=== PATIENT | male | born 1955 | race Caucasian/White ===

== ENCOUNTER 2020-04-01 18:48 | Inpatient (IN) | payer OTHER ==
[2020-04-01] MEDS ORDERED: dilTIAZem HCL 50 MG/10 ML - 10 ML VIAL IVPUSH ONE ×3 (20:14→20:45)
[2020-04-01] MEDS ORDERED: dilTIAZem HCL 125 MG/25 ML - 25 ML VIAL ONE ×3 (20:17→20:47)
[2020-04-01 20:26] LABS: HEMATOCRIT 34.7 % (35.4-49); HEMOGLOBIN 10.9 GM/dL (11.7-16.9); MCHC 31.3 g/dl (32.0-35.9); MEAN CELL VOLUME 79.8 fl (80-96); MEAN PLT VOLUME 9.7 fl (7.5-11.1); PLATELET COUNT 282 K/MM3 (134-434); RBC 4.35 M/mm3 (4.00-5.60); RDW 17.4 % (11.9-15.9); WHITE BLOOD COUNT 10.6 K/mm3 (4.0-10.0)
[2020-04-01 20:40] LABS: INR 1.63 (0.83-1.09); PROTHROMBIN TIME (PATIENT) 19.8 SEC (9.7-13.0)
[2020-04-01 20:43] LABS: ACTIVATED PTT 30.1 SECONDS (25.2-36.5)
[2020-04-01] MEDS ORDERED: DILTIAZEM INJECTION 125 MG in SODIUM CHLORIDE 100 ML IVPB SCH (20:45)
[2020-04-01] MEDS ORDERED: dilTIAZem HCL 50 MG/10 ML - 10 ML VIAL ONE (20:47)
[2020-04-01 20:59] LABS: CHLORIDE 100 mmol/L (98-107); POTASSIUM 5.1 mmol/L (3.5-5.1); SODIUM 134 mmol/L (136-145)
[2020-04-01 21:00] LABS: ALBUMIN 3.7 g/dl (3.4-5.0); CALCIUM 8.5 mg/dL (8.5-10.1); MAGNESIUM 2.3 mg/dL (1.8-2.4)
[2020-04-01 21:01] LABS: ANION GAP 7 MMOL/L (8-16); CO2 26 mmol/L (21-32); GLUCOSE,RANDOM 98 mg/dL (74-106)
[2020-04-01] MEDS ORDERED: HEPARIN NA (PORCINE) 5,000 UNITS/ML 1ML VIAL IVPUSH ONE (21:01)
[2020-04-01] MEDS ORDERED: HEPARIN NA (PORCINE) 5,000 UNITS/ML 1ML VIAL IVPUSH PRN (21:02)
[2020-04-01 21:03] LABS: CREATININE 1.4 mg/dL (0.55-1.3); SGOT/AST 259 U/L (15-37); SGPT/ALT 513 U/L (13-61)
[2020-04-01 21:05] LABS: TOT PROT 6.5 g/dl (6.4-8.2)
[2020-04-01 21:09] LABS: N-TERMINAL BNP 4029.2 pg/ml (5-125)
[2020-04-01] MEDS ORDERED: SODIUM CHLORIDE 500 ML IV STA (21:11)
[2020-04-01 21:12] LABS: BILIRUBIN,TOTAL 2.6 mg/dL (0.2-1)
[2020-04-01 21:14] LABS: ALK PHOS 170 U/L (45-117)
[2020-04-01] MEDS ORDERED: HEPARIN - 25,000 UNIT in SODIUM CHLORIDE 495 ML IV SCH (21:15)
[2020-04-01] MEDS ORDERED: HEPARIN NA (PORCINE) 5,000 UNITS/ML 1ML VIAL ONE (21:17)
[2020-04-01] MEDS ORDERED: HEPARIN INFUSION - 25,000 UNITS/500 ML INFUS.BAG IVPB ONE (21:17)
[2020-04-01] MEDS ORDERED: FUROSEMIDE 40 MG/4 ML INJECTABLE VIAL ONE (21:23)
[2020-04-01] MEDS ORDERED: FUROSEMIDE 40 MG/4 ML INJECTABLE VIAL IVPUSH ONE (21:24)
[2020-04-01 21:36] LABS: BLOOD UREA NITROGEN 27.9 mg/dL (7-18)
[2020-04-01] MEDS ORDERED: METOPROLOL TARTRATE 5 MG/5 ML VIAL ONE (22:04)
[2020-04-01] MEDS ORDERED: METOPROLOL TARTRATE 5 MG/5 ML VIAL IVPUSH ONE (22:31)
[2020-04-01 23:08] LABS: URINE APPEARANCE CLEAR; URINE BILIRUBIN NEGATIVE (NEGATIVE); URINE COLOR YELLOW; URINE GLUCOSE (UA) NEGATIVE (NEGATIVE); URINE KETONE NEGATIVE (NEGATIVE); URINE LEUK ESTERASE NEGATIVE (NEGATIVE); URINE NITRITE NEGATIVE (NEGATIVE); URINE PROTEIN NEGATIVE (NEGATIVE)
[2020-04-02] MEDS ORDERED: DIGOXIN IVPUSH ONE (00:07)
[2020-04-02] MEDS ORDERED: ENOXAPARIN NA (PORCINE) 100 MG/1 ML DISP.SYRIN SQ ONE ×2 (00:17→00:31)
[2020-04-02] MEDS ORDERED: DIGOXIN 0.5 MG/2 ML AMPUL IVPUSH ONE ×4 (00:25→06:12)
[2020-04-02] MEDS ORDERED: DIGOXIN 0.5 MG/2 ML AMPUL ONE (00:58)
[2020-04-02] MEDS: OSELTAMIVIR PHOSPHATE 75 MG CAPSULE PO SCH ×3 (01:44→22:11)
[2020-04-02 05:05] VITALS: BMI 32.1
[2020-04-02 06:41] LABS: BASO % 0.7 % (0-2.0); EOS % 1.1 % (0-4.5); HEMATOCRIT 33.8 % (35.4-49); HEMOGLOBIN 10.8 GM/dL (11.7-16.9); LYMPH % 24.5 % (8-40); MCH 25.5 pg (25.7-33.7); MCHC 31.8 g/dl (32.0-35.9); MEAN CELL VOLUME 80.1 fl (80-96); MEAN PLT VOLUME 9.6 fl (7.5-11.1); MONO % 19.1 % (3.8-10.2); NEUT % 54.6 % (42.8-82.8); PLATELET COUNT 236 K/MM3 (134-434); RBC 4.23 M/mm3 (4.00-5.60); RDW 17.5 % (11.9-15.9); WHITE BLOOD COUNT 10.5 K/mm3 (4.0-10.0)
[2020-04-02 06:54] LABS: INR 1.62 (0.83-1.09); PROTHROMBIN TIME (PATIENT) 19.7 SEC (9.7-13.0)
[2020-04-02 07:13] LABS: ALBUMIN 3.4 g/dl (3.4-5.0); ALK PHOS 142 U/L (45-117); ANION GAP 11 MMOL/L (8-16); BILIRUBIN,TOTAL 2.1 mg/dL (0.2-1); BLOOD UREA NITROGEN 25.6 mg/dL (7-18); CALCIUM 8.2 mg/dL (8.5-10.1); CHLORIDE 103 mmol/L (98-107); CO2 23 mmol/L (21-32); CREATININE 1.2 mg/dL (0.55-1.3); GLUCOSE,RANDOM 85 mg/dL (74-106); MAGNESIUM 2.1 mg/dL (1.8-2.4); PHOSPHOROUS 4.7 mg/dL (2.5-4.9); POTASSIUM 4.6 mmol/L (3.5-5.1); SGOT/AST 213 U/L (15-37); SGPT/ALT 438 U/L (13-61); SODIUM 137 mmol/L (136-145); TOT PROT 5.8 g/dl (6.4-8.2)
[2020-04-02] MEDS ORDERED: dilTIAZem HCL 25 MG/5 ML - 5 ML VIAL ONE (07:25)
[2020-04-02] MEDS: INSULIN SLIDING SCALE (NOVOLOG) 1 VIAL SQ SCH ×4 (07:58→22:25)
[2020-04-02] MEDS ORDERED: METOPROLOL TARTRATE 5 MG/5 ML VIAL IVPUSH PRN (08:45)
[2020-04-02] MEDS ORDERED: METOPROLOL TARTRATE 50 MG TABLET (FP) PO SCH (10:15)
[2020-04-02] MEDS: SOTALOL HCL 80 MG TABLET (FP) PO SCH ×2 (10:57→22:10)
[2020-04-02] MEDS: MUPIROCIN 2% TOPICAL OINTMENT FOR DECOLONIZATION NS SCH ×2 (11:04→22:10)
[2020-04-02] MEDS ORDERED: DILTIAZEM INJECTION 125 MG in SODIUM CHLORIDE 100 ML IVPB SCH (12:57)
[2020-04-02] MEDS ORDERED: dilTIAZem HCL 30 MG TABLET PO SCH (14:00)
[2020-04-02] MEDS: DILTIAZEM INJECTION 125 MG in SODIUM CHLORIDE 100 ML IVPB SCH (16:11)
[2020-04-02] MEDS ORDERED: CHLORHEXIDINE GLUCONATE 4% CLEANSER FOR DECOLONIZATION TP SCH (22:00)
[2020-04-03] MEDS: INSULIN SLIDING SCALE (NOVOLOG) 1 VIAL SQ SCH ×4 (06:58→23:35)
[2020-04-03 06:59] LABS: BASO % 0.6 % (0-2.0); EOS % 2.6 % (0-4.5); HEMOGLOBIN 11.5 GM/dL (11.7-16.9); LYMPH % 15.5 % (8-40); MCH 24.7 pg (25.7-33.7); MCHC 31.1 g/dl (32.0-35.9); MEAN CELL VOLUME 79.6 fl (80-96); MEAN PLT VOLUME 9.4 fl (7.5-11.1); MONO % 12.1 % (3.8-10.2); NEUT % 69.2 % (42.8-82.8); PLATELET COUNT 213 K/MM3 (134-434); RBC 4.65 M/mm3 (4.00-5.60); RDW 17.8 % (11.9-15.9); WHITE BLOOD COUNT 11.7 K/mm3 (4.0-10.0)
[2020-04-03 08:01] LABS: ALBUMIN 3.1 g/dl (3.4-5.0); BILIRUBIN,TOTAL 1.6 mg/dL (0.2-1); BLOOD UREA NITROGEN 21.1 mg/dL (7-18); CALCIUM 7.9 mg/dL (8.5-10.1); CREATININE 1.1 mg/dL (0.55-1.3); MAGNESIUM 2.4 mg/dL (1.8-2.4); PHOSPHOROUS 3.9 mg/dL (2.5-4.9); POTASSIUM 4.1 mmol/L (3.5-5.1); TOT PROT 5.7 g/dl (6.4-8.2)
[2020-04-03] MEDS: OSELTAMIVIR PHOSPHATE 75 MG CAPSULE PO SCH ×2 (09:17→23:35)
[2020-04-03] MEDS: SOTALOL HCL 80 MG TABLET (FP) PO SCH ×2 (09:17→23:35)
[2020-04-03] MEDS: MUPIROCIN 2% TOPICAL OINTMENT FOR DECOLONIZATION NS SCH (09:18)
[2020-04-03] MEDS: BENZOCAINE/MENTH/CETYLPYRD CL 1 EACH LOZENGE MM SCH ×3 (09:58→23:35)
[2020-04-03] MEDS ORDERED: METOPROLOL TARTRATE 50 MG TABLET (FP) PO SCH (10:00)
[2020-04-03] MEDS: FUROSEMIDE 40 MG/4 ML INJECTABLE VIAL IVPUSH SCH (11:46)
[2020-04-03] MEDS: METOPROLOL TARTRATE 5 MG/5 ML VIAL IVPUSH SCH ×4 (11:46→22:21)
[2020-04-03] MEDS: DILTIAZEM INJECTION 125 MG in SODIUM CHLORIDE 100 ML IVPB SCH ×2 (13:30→20:30)
[2020-04-03] MEDS ORDERED: CHLORHEXIDINE GLUCONATE 4% CLEANSER FOR DECOLONIZATION TP SCH (22:00)
[2020-04-03] MEDS ORDERED: MUPIROCIN 2% TOPICAL OINTMENT FOR DECOLONIZATION NS SCH (22:00)
[2020-04-04] MEDS: METOPROLOL TARTRATE 5 MG/5 ML VIAL IVPUSH SCH ×6 (02:25→22:11)
[2020-04-04] MEDS: BENZOCAINE/MENTH/CETYLPYRD CL 1 EACH LOZENGE MM SCH ×3 (06:54→21:21)
[2020-04-04] MEDS: INSULIN SLIDING SCALE (NOVOLOG) 1 VIAL SQ SCH ×4 (06:54→21:21)
[2020-04-04 08:59] LABS: POTASSIUM 3.9 mmol/L (3.5-5.1)
[2020-04-04 09:11] LABS: CALCIUM 8.2 mg/dL (8.5-10.1)
[2020-04-04 09:12] LABS: ALBUMIN 3.2 g/dl (3.4-5.0); BLOOD UREA NITROGEN 17.8 mg/dL (7-18); MAGNESIUM 2.3 mg/dL (1.8-2.4)
[2020-04-04 09:15] LABS: CREATININE 0.9 mg/dL (0.55-1.3)
[2020-04-04 09:16] LABS: BILIRUBIN,TOTAL 1.5 mg/dL (0.2-1)
[2020-04-04 10:05] LABS: BASO % 0.6 % (0-2.0); EOS % 3.2 % (0-4.5); HEMATOCRIT 35.5 % (35.4-49); HEMOGLOBIN 11.2 GM/dL (11.7-16.9); LYMPH % 16.4 % (8-40); MCH 24.9 pg (25.7-33.7); MCHC 31.4 g/dl (32.0-35.9); MEAN CELL VOLUME 79.1 fl (80-96); MEAN PLT VOLUME 9.2 fl (7.5-11.1); MONO % 14.6 % (3.8-10.2); NEUT % 65.2 % (42.8-82.8); PLATELET COUNT 230 K/MM3 (134-434); RBC 4.49 M/mm3 (4.00-5.60); RDW 17.8 % (11.9-15.9); WHITE BLOOD COUNT 8.9 K/mm3 (4.0-10.0)
[2020-04-04] MEDS: FUROSEMIDE 40 MG/4 ML INJECTABLE VIAL IVPUSH SCH (10:30)
[2020-04-04] MEDS: OSELTAMIVIR PHOSPHATE 75 MG CAPSULE PO SCH ×2 (10:30→21:18)
[2020-04-04] MEDS: SOTALOL HCL 80 MG TABLET (FP) PO SCH ×3 (10:31→21:18)
[2020-04-04] MEDS: DILTIAZEM INJECTION 125 MG in SODIUM CHLORIDE 100 ML IVPB SCH ×2 (14:40→22:56)
[2020-04-05] MEDS: METOPROLOL TARTRATE 5 MG/5 ML VIAL IVPUSH SCH ×5 (02:12→17:41)
[2020-04-05] MEDS: BENZOCAINE/MENTH/CETYLPYRD CL 1 EACH LOZENGE MM SCH ×3 (05:33→22:44)
[2020-04-05] MEDS: SOTALOL HCL 80 MG TABLET (FP) PO SCH ×3 (05:54→22:43)
[2020-04-05] MEDS: INSULIN SLIDING SCALE (NOVOLOG) 1 VIAL SQ SCH ×4 (06:05→22:53)
[2020-04-05] MEDS: FUROSEMIDE 40 MG/4 ML INJECTABLE VIAL IVPUSH SCH (09:33)
[2020-04-05] MEDS: OSELTAMIVIR PHOSPHATE 75 MG CAPSULE PO SCH ×2 (09:33→22:44)
[2020-04-05 10:26] LABS: HEMATOCRIT 34.1 % (35.4-49); HEMOGLOBIN 10.9 GM/dL (11.7-16.9); LYMPH % 20.3 % (8-40); MCH 25.2 pg (25.7-33.7); MCHC 31.9 g/dl (32.0-35.9); MEAN PLT VOLUME 8.9 fl (7.5-11.1); MONO % 13.8 % (3.8-10.2); NEUT % 59.9 % (42.8-82.8); PLATELET COUNT 250 K/MM3 (134-434); RBC 4.32 M/mm3 (4.00-5.60); RDW 17.6 % (11.9-15.9); WHITE BLOOD COUNT 7.4 K/mm3 (4.0-10.0)
[2020-04-05 10:59] LABS: CALCIUM 8.4 mg/dL (8.5-10.1)
[2020-04-05 11:00] LABS: ALBUMIN 3.1 g/dl (3.4-5.0); BLOOD UREA NITROGEN 16.2 mg/dL (7-18); MAGNESIUM 2.4 mg/dL (1.8-2.4)
[2020-04-05 11:03] LABS: CREATININE 0.9 mg/dL (0.55-1.3)
[2020-04-05 11:05] LABS: BILIRUBIN,TOTAL 1.3 mg/dL (0.2-1); TOT PROT 5.7 g/dl (6.4-8.2)
[2020-04-05] MEDS: DILTIAZEM INJECTION 125 MG in SODIUM CHLORIDE 100 ML IVPB SCH (14:01)
[2020-04-05] MEDS ORDERED: dilTIAZem HCL 30 MG TABLET PO SCH (16:00)
[2020-04-05] MEDS: dilTIAZem HCL 30 MG TABLET PO SCH (22:44)
[2020-04-06] MEDS: BENZOCAINE/MENTH/CETYLPYRD CL 1 EACH LOZENGE MM SCH ×3 (05:11→21:01)
[2020-04-06] MEDS: dilTIAZem HCL 30 MG TABLET PO SCH ×3 (05:11→21:00)
[2020-04-06] MEDS: SOTALOL HCL 80 MG TABLET (FP) PO SCH ×3 (05:11→21:00)
[2020-04-06] MEDS: INSULIN SLIDING SCALE (NOVOLOG) 1 VIAL SQ SCH ×2 (06:51→19:03)
[2020-04-06 09:51] LABS: EOS % 7.5 % (0-4.5); HEMATOCRIT 33.1 % (35.4-49); HEMOGLOBIN 10.5 GM/dL (11.7-16.9); LYMPH % 21.8 % (8-40); MCH 25.1 pg (25.7-33.7); MCHC 31.8 g/dl (32.0-35.9); MEAN CELL VOLUME 78.9 fl (80-96); MONO % 13.4 % (3.8-10.2); NEUT % 55.3 % (42.8-82.8); PLATELET COUNT 223 K/MM3 (134-434); RDW 17.6 % (11.9-15.9); WHITE BLOOD COUNT 6.7 K/mm3 (4.0-10.0)
[2020-04-06] MEDS: FUROSEMIDE 20 MG TABLET (FP) PO SCH (10:04)
[2020-04-06] MEDS: OSELTAMIVIR PHOSPHATE 75 MG CAPSULE PO SCH (10:04)
[2020-04-06 10:23] LABS: POTASSIUM 4.1 mmol/L (3.5-5.1)
[2020-04-06 11:25] LABS: CALCIUM 8.5 mg/dL (8.5-10.1); MAGNESIUM 2.4 mg/dL (1.8-2.4)
[2020-04-06 11:26] LABS: ALBUMIN 3.1 g/dl (3.4-5.0); BLOOD UREA NITROGEN 16.7 mg/dL (7-18)
[2020-04-06 11:29] LABS: CREATININE 0.9 mg/dL (0.55-1.3)
[2020-04-06 11:30] LABS: BILIRUBIN,TOTAL 1.2 mg/dL (0.2-1); TOT PROT 5.6 g/dl (6.4-8.2)
[2020-04-06 17:56] LABS: N-TERMINAL BNP 1705.6 pg/ml (5-125)
[2020-04-06] MEDS: HEPARIN NA (PORCINE) 5,000 UNITS/ML 1ML VIAL SQ SCH (21:00)
[2020-04-07] MEDS: METOPROLOL TARTRATE 5 MG/5 ML VIAL IVPUSH PRN ×2 (02:05→06:42)
[2020-04-07] MEDS: SOTALOL HCL 80 MG TABLET (FP) PO SCH ×4 (03:51→21:13)
[2020-04-07] MEDS: dilTIAZem HCL 30 MG TABLET PO SCH ×4 (03:51→21:13)
[2020-04-07] MEDS: BENZOCAINE/MENTH/CETYLPYRD CL 1 EACH LOZENGE MM SCH ×3 (05:15→21:13)
[2020-04-07] MEDS ORDERED: PT OWN MED DRAWER 7, Y5N ONE (06:55)
[2020-04-07 07:54] LABS: BASO % 1.7 % (0-2.0); EOS % 8.6 % (0-4.5); HEMATOCRIT 35.4 % (35.4-49); HEMOGLOBIN 11.3 GM/dL (11.7-16.9); LYMPH % 26.8 % (8-40); MCH 24.9 pg (25.7-33.7); MCHC 31.9 g/dl (32.0-35.9); MEAN CELL VOLUME 78.2 fl (80-96); MEAN PLT VOLUME 8.6 fl (7.5-11.1); MONO % 12.2 % (3.8-10.2); NEUT % 50.7 % (42.8-82.8); PLATELET COUNT 233 K/MM3 (134-434); RBC 4.52 M/mm3 (4.00-5.60); RDW 17.8 % (11.9-15.9); WHITE BLOOD COUNT 6.3 K/mm3 (4.0-10.0)
[2020-04-07 08:17] LABS: POTASSIUM 4.3 mmol/L (3.5-5.1)
[2020-04-07 08:24] LABS: BLOOD UREA NITROGEN 15.9 mg/dL (7-18); CALCIUM 8.5 mg/dL (8.5-10.1)
[2020-04-07 08:25] LABS: MAGNESIUM 2.4 mg/dL (1.8-2.4)
[2020-04-07 08:29] LABS: BILIRUBIN,TOTAL 1.8 mg/dL (0.2-1); TOT PROT 5.8 g/dl (6.4-8.2)
[2020-04-07] MEDS: FUROSEMIDE 20 MG TABLET (FP) PO SCH (09:30)
[2020-04-07] MEDS: HEPARIN NA (PORCINE) 5,000 UNITS/ML 1ML VIAL SQ SCH ×2 (09:31→21:12)
[2020-04-07] MEDS: METOPROLOL TARTRATE 25 MG TABLET (FP) PO SCH ×2 (13:33→21:15)
[2020-04-07] MEDS ORDERED: FUROSEMIDE 20 MG TABLET (FP) PO ONE (14:30)
[2020-04-08] MEDS: METOPROLOL TARTRATE 5 MG/5 ML VIAL IVPUSH PRN (03:51)
[2020-04-08] MEDS: SOTALOL HCL 80 MG TABLET (FP) PO SCH ×3 (06:59→21:36)
[2020-04-08] MEDS: dilTIAZem HCL 30 MG TABLET PO SCH ×2 (06:59→14:22)
[2020-04-08] MEDS: BENZOCAINE/MENTH/CETYLPYRD CL 1 EACH LOZENGE MM SCH ×3 (07:00→21:36)
[2020-04-08 08:32] LABS: BASO % 1.7 % (0-2.0); HEMATOCRIT 39.1 % (35.4-49); HEMOGLOBIN 12.4 GM/dL (11.7-16.9); LYMPH % 30.6 % (8-40); MCH 24.7 pg (25.7-33.7); MCHC 31.7 g/dl (32.0-35.9); MEAN PLT VOLUME 8.5 fl (7.5-11.1); MONO % 12.5 % (3.8-10.2); NEUT % 47.2 % (42.8-82.8); PLATELET COUNT 271 K/MM3 (134-434); RBC 5.01 M/mm3 (4.00-5.60); RDW 18.1 % (11.9-15.9); WHITE BLOOD COUNT 7.1 K/mm3 (4.0-10.0)
[2020-04-08 08:56] LABS: ALBUMIN 3.4 g/dl (3.4-5.0)
[2020-04-08 08:57] LABS: MAGNESIUM 2.6 mg/dL (1.8-2.4)
[2020-04-08 08:59] LABS: CALCIUM 9.2 mg/dL (8.5-10.1)
[2020-04-08 09:00] LABS: BILIRUBIN,TOTAL 1.2 mg/dL (0.2-1)
[2020-04-08 09:01] LABS: TOT PROT 6.2 g/dl (6.4-8.2)
[2020-04-08] MEDS: FUROSEMIDE 20 MG TABLET (FP) PO SCH (10:00)
[2020-04-08] MEDS: HEPARIN NA (PORCINE) 5,000 UNITS/ML 1ML VIAL SQ SCH ×2 (10:00→21:36)
[2020-04-08] MEDS: METOPROLOL TARTRATE 25 MG TABLET (FP) PO SCH (10:00)
[2020-04-08] MEDS: dilTIAZem HCL 60 MG TABLET PO SCH (21:36)
[2020-04-09] MEDS: BENZOCAINE/MENTH/CETYLPYRD CL 1 EACH LOZENGE MM SCH ×2 (05:05→13:37)
[2020-04-09] MEDS: SOTALOL HCL 80 MG TABLET (FP) PO SCH ×2 (05:09→13:40)
[2020-04-09 07:53] LABS: BASO % 2.3 % (0-2.0); EOS % 8.2 % (0-4.5); HEMATOCRIT 35.1 % (35.4-49); HEMOGLOBIN 11.3 GM/dL (11.7-16.9); LYMPH % 31.8 % (8-40); MCH 25.2 pg (25.7-33.7); MCHC 32.2 g/dl (32.0-35.9); MEAN CELL VOLUME 78.4 fl (80-96); MEAN PLT VOLUME 8.3 fl (7.5-11.1); MONO % 12.2 % (3.8-10.2); NEUT % 45.5 % (42.8-82.8); PLATELET COUNT 198 K/MM3 (134-434); RBC 4.49 M/mm3 (4.00-5.60); WHITE BLOOD COUNT 4.9 K/mm3 (4.0-10.0)
[2020-04-09 08:05] LABS: POTASSIUM 4.4 mmol/L (3.5-5.1)
[2020-04-09 08:11] LABS: CALCIUM 8.2 mg/dL (8.5-10.1)
[2020-04-09 08:12] LABS: BLOOD UREA NITROGEN 18.1 mg/dL (7-18)
[2020-04-09 08:14] LABS: BILIRUBIN,TOTAL 0.9 mg/dL (0.2-1); TOT PROT 5.8 g/dl (6.4-8.2)
[2020-04-09 08:15] LABS: CREATININE 0.9 mg/dL (0.55-1.3)
[2020-04-09 08:21] LABS: MAGNESIUM 2.5 mg/dL (1.8-2.4)
[2020-04-09] MEDS: dilTIAZem HCL 60 MG TABLET PO SCH (09:04)
[2020-04-09] MEDS: HEPARIN NA (PORCINE) 5,000 UNITS/ML 1ML VIAL SQ SCH (09:05)
[2020-04-09] MEDS: FUROSEMIDE 20 MG TABLET (FP) PO SCH (09:05)
[2020-04-09 14:14] VITALS: BP 101/58; PULSE 62; TEMP 98
== END 2020-04-09 14:14 | disposition home or self-care (01) | DRG 193 ==
LOC: JER 18:48 → JERBED 22:15 → JICU 04-02 02:55 → J4W 04-03 07:06
PROVIDERS: ADMIT Internal Medicine; ATTEND Nurse Practitioner Acute Care
PROC: 5A2204Z Restoration of Cardiac Rhythm, Single (ICD-10-PCS; principal; 2020-04-08 14:30)
DX: J10.1 Influenza due to other identified influenza virus with other respiratory manifestations (principal); I50.33 Acute on chronic diastolic (congestive) heart failure; N17.9 Acute kidney failure, unspecified; I48.91 Unspecified atrial fibrillation; I11.0 Hypertensive heart disease with heart failure; E78.00 Pure hypercholesterolemia, unspecified; R74.01 Elevation of levels of liver transaminase levels; N28.1 Cyst of kidney, acquired; E87.70 Fluid overload, unspecified; D64.9 Anemia, unspecified; I35.0 Nonrheumatic aortic (valve) stenosis; E66.9 Obesity, unspecified; Z68.27 Body mass index [BMI] 27.0-27.9, adult; E78.5 Hyperlipidemia, unspecified
CPT/HCPCS: 36415; 71045-TC-FY; 80053; 80061; 80307; 81003; 82550; 82553; 82962; 83036; 83605; 83721; 83735; 83880; 84100; 84443; 84484; 85025; 85027; 85379; 85610; 85730; 87804; 93005; 93010; 93306-TC; 93970-TC; 97116-GP; 97161-GP; 99291; 99292; C9803; J1644; U0003